=== PATIENT | male | born 1990 | race Caucasian/White ===

== ENCOUNTER 2018-03-15 15:12 | Emergency (ER) | payer OTHER ==
--- NOTE | 2018-03-15 16:32 | ER Document Report ---
ED Medical Screen (RME) - General Chief Complaint: Foot Pain Stated Complaint: POSSIBLE TOE INFECTION Time Seen by Provider: 03/15/18 16:30 Notes: 27 years old male presents today with right big toe infected ingrown toenail. TRAVEL OUTSIDE OF THE [place] IN LAST 30 DAYS: No - Related Data Allergies/Adverse Reactions: erythromycin base [Erythromycin Base] Allergy (Verified 03/15/18 15:14) Penicillins Allergy (Verified 03/15/18 15:14) Past Medical History - Immunizations Hx Diphtheria, Pertussis, Tetanus Vaccination: Yes Physical Exam - Vital signs Vitals: Temp Pulse Resp BP Pulse Ox 98.3 F 76 18 140/83 H 97 03/15/18 15:37 03/15/18 15:37 03/15/18 15:37 03/15/18 15:37 03/15/18 15:37 Course - Vital Signs Vital signs: Temp Pulse Resp BP Pulse Ox 98.3 F 76 18 140/83 H 97 03/15/18 15:37 03/15/18 15:37 03/15/18 15:37 03/15/18 15:37 03/15/18 15:37
[2018-03-15] MEDS ORDERED: LIDOCAINE 1% INJ-PF (10 MG/ML) 30 ML SDV INJ ONE (18:03)
[2018-03-15] MEDS ORDERED: SULFAMETHOXAZOLE/TRIMETHOPRIM 800-160 MG TABLET PO ONE (18:06)
--- NOTE | 2018-03-15 18:09 | ER Document Report ---
HPI - HPI Patient complains to provider of: Left toenail infection. Time Seen by Provider: 03/15/18 16:30 Pain Level: 3 Context: Patient is a 27-year-old male presents to the emergency department complaining of 2 weeks of the left big toe nail redness and discharge. Patient states about 2 weeks ago he did cut his toenails and after that noticed some erythema around the lateral aspect of his right big toenail. States it has intermittently been leaking pus over the last 2 weeks. States he was at primary care today who put a needle into the abscess and then told him he needed to come to the emergency room. Patient states he has been doing warm soaks and applying Neosporin to the area but has not been on any antibiotics. Past medical history: Chronic back pain, depression Medications: Wellbutrin, tramadol, Zyrtec Allergies: Penicillin, erythromycin - DERM Skin Color: Normal Past Medical History - General Information source: Patient - Social History Smoking Status: Current Every Day Smoker Chew tobacco use (# tins/day): No Frequency of alcohol use: Rare Drug Abuse: None Family History: Reviewed & Not Pertinent Patient has suicidal ideation: No Patient has homicidal ideation: No Renal/ Medical History: Denies: Hx Peritoneal Dialysis - Immunizations Hx Diphtheria, Pertussis, Tetanus Vaccination: Yes Vertical Provider Document - CONSTITUTIONAL Agree With Documented VS: Yes Notes: GENERAL: Alert, interacts well. No acute distress. HEAD: Normocephalic, atraumatic. EYES: Pupils equal, round, and reactive to light. Extraocular movements intact. ENT: Oral mucosa moist, tongue midline. NECK: Full range of motion. Supple. Trachea midline. LUNGS: Clear to auscultation bilaterally, no wheezes, rales, or rhonchi. No respiratory distress. HEART: Regular rate and rhythm. No murmur ABDOMEN: Soft, non-tender. Non-distended. Bowel sounds present in all 4 quadrants. EXTREMITIES: Moves all 4 extremities spontaneously. No edema, normal radial and dorsalis pedis pulses bilaterally. No cyanosis. BACK: no cervical, thoracic, lumbar midline tenderness. No saddle anesthesia, normal distal neurovascular exam. NEUROLOGICAL: Alert and oriented x3. Normal speech. cranial nerves II through XII grossly intact PSYCH: Normal affect, normal mood. SKIN: Warm, dry, normal turgor. Patient's left great toe is completely erythematous with capillary refill less than 2 seconds. What appears to be a pocket of pus is located on the lateral aspect of the big toenail. - INFECTION CONTROL TRAVEL OUTSIDE OF THE [place] IN LAST 30 DAYS: No Course - Re-evaluation Re-evalutation: 03/15/18 18:07 Patient states he took a tramadol prior to coming to the emergency room. He is refusing any pain management in the emergency room. 03/15/18 19:05 Pt. tolerated procedure well. Scant amount of purulent d/c expressed. Will treat with oral and topical abx for surrounding cellulitis. Pt. stable to d/c - Vital Signs Vital signs: Temp Pulse Resp BP Pulse Ox 98.3 F 76 18 140/83 H 97 03/15/18 15:37 03/15/18 15:37 03/15/18 15:37 03/15/18 15:37 03/15/18 15:37 Discharge - Discharge Clinical Impression: Paronychia of toenail Qualifiers: Laterality: left Qualified Code(s): L03.032 - Cellulitis of left toe Condition: Stable Disposition: HOME, SELF-CARE Instructions: Paronychia ([facility]) Prescriptions: Mupirocin [Bactroban 2% Ointment 22 gm] 1 applic TP TID #1 tube Sulfamethoxazole/Trimethoprim [Bactrim Ds Tablet] 1 each PO BID 7 Days #14 tablet Referrals: [facility] [Primary Care [facility]] - Follow up as needed
[2018-03-15 19:36] VITALS: BP 131/79
== END 2018-03-15 19:38 | disposition home or self-care (01) ==
LOC: ER 15:12
DX: L03.032 Cellulitis of left toe (principal); M54.9 Dorsalgia, unspecified; G89.29 Other chronic pain; F17.200 Nicotine dependence, unspecified, uncomplicated; F32.9 Major depressive disorder, single episode, unspecified; Z79.899 Other long term (current) drug therapy; Z79.891 Long term (current) use of opiate analgesic; Z88.0 Allergy status to penicillin; Z88.1 Allergy status to other antibiotic agents
CPT/HCPCS: 99283